=== PATIENT | male | born 1945 ===

== ENCOUNTER 2021-08-03 17:30 | Inpatient (IN) ==
[2021-08-03] MEDS ORDERED: Isovue-370 500 ML BOTTLE IVP ONE (21:24)
[2021-08-03 21:58] LABS: Basophils % 0.2 %; Hematocrit 33.5 % (37.5-50.1); Hemoglobin 10.8 g/dL (12.9-16.9); Immature Granulocytes % 1.1 % (0-4); Lymphocytes # 0.9 K/mcL (0.6-4.6); Lymphocytes % 6.9 %; Mean Corpuscular HGB Conc 32.2 g/dL (31.6-35.5); Mean Corpuscular Hemoglobin 31.4 pg (28.0-33.3); Mean Corpuscular Volume 97.4 fL (83.0-100.0); Mean Platelet Volume 9.9 fL (9.4-12.4); Monocytes # 0.9 K/mcL (0.0-1.3); Neutrophils # 10.5 K/mcL (1.6-8.9); Platelet Count 174 K/mcL (140-400); Red Blood Count 3.44 M/mcL (4.19-5.50); Red Cell Distribution Width 13.6 % (11.5-14.5); Segmented Neutrophils % 84.8 %; White Blood Count 12.3 K/mcL (4.3-11.1)
[2021-08-03 22:01] LABS: Bilirubin,Urine Negative (Negative); Blood,Urine Moderate (Negative); Clarity,Urine Clear (Clear); Color,Urine Light-Yellow (Yellow); Glucose,Urine (UA) 200 mg/dL (Normal); Ketones,Urine Negative (Negative); Leukocyte Esterase,Urine Negative (Negative); Mucus,Urine Few per lpf (None-Few); Nitrite,Urine Negative (Negative); PH,Urine 6.5 pH Units (5.0-8.0); Protein,Urine >=600 mg/dL (Neg-Trace); RBC,Urine TNTC per hpf (0-3); Specific Gravity,Urine 1.015 (1.010-1.025); Urobilinogen,Urine Normal (Normal)
[2021-08-03 22:14] LABS: Calcium 8.2 mg/dL (8.6-10.3)
[2021-08-03] MEDS ORDERED: *HR* HYDROmorphone (PF) 1 MG/ML SYRINGE IVP ONE (23:20)
[2021-08-03] MEDS ORDERED: Ondansetron 4 MG/2 ML VIAL IVP ONE (23:21)
[2021-08-04] MEDS ORDERED: 0.9 % Sodium Chloride 1,000 ML IVC ONE (05:27)
[2021-08-04] MEDS ORDERED: Acetaminophen 325 MG TABLET PO PRN (05:31)
[2021-08-04] MEDS ORDERED: *HR* Promethazine 25 MG/ML VIAL IM PRN (05:31)
[2021-08-04] MEDS ORDERED: Naloxone 0.4 MG/ML INJ IVP PRN (05:31)
[2021-08-04] MEDS: Ringers Solution, Lactated 1,000 ML IVC SCH ×2 (08:51→18:56)
[2021-08-04] MEDS: Doxycycline 100 MG CAPSULE PO SCH ×2 (08:51→20:15)
[2021-08-04] MEDS: *HR* Heparin 5,000 UNIT/ML VIAL SQ SCH ×2 (13:29→20:16)
[2021-08-04] MEDS: *HR* HYDROcodone/Acet 5/325 mg TABLET PO PRN ×2 (17:37→21:52)
[2021-08-04 22:46] LABS: Influenza A PCR Negative (Negative); Influenza B PCR Negative (Negative); Resp. Syncytial Virus PCR Negative (Negative)
[2021-08-04 22:49] LABS: SARS-CoV-2 by PCR (In House) Positive (Negative)
[2021-08-05 01:17] LABS: Basophils % 0.4 %; Eosinophils # 0.2 K/mcL (0.0-0.6); Eosinophils % 2.4 %; Hematocrit 31.5 % (37.5-50.1); Hemoglobin 10.1 g/dL (12.9-16.9); Immature Granulocytes % 0.6 % (0-4); Lymphocytes # 1.2 K/mcL (0.6-4.6); Lymphocytes % 14.9 %; Mean Corpuscular HGB Conc 32.1 g/dL (31.6-35.5); Mean Corpuscular Hemoglobin 30.9 pg (28.0-33.3); Mean Corpuscular Volume 96.3 fL (83.0-100.0); Mean Platelet Volume 9.8 fL (9.4-12.4); Monocytes # 0.6 K/mcL (0.0-1.3); Monocytes % 8.2 %; Neutrophils # 5.8 K/mcL (1.6-8.9); Platelet Count 155 K/mcL (140-400); Red Blood Count 3.27 M/mcL (4.19-5.50); Red Cell Distribution Width 13.6 % (11.5-14.5); Segmented Neutrophils % 73.5 %; White Blood Count 7.9 K/mcL (4.3-11.1)
[2021-08-05 01:36] LABS: Calcium 8.3 mg/dL (8.6-10.3); Potassium 4.1 mEq/L (3.5-5.1)
[2021-08-05] MEDS: *HR* HYDROcodone/Acet 5/325 mg TABLET PO PRN ×5 (03:11→21:46)
[2021-08-05] MEDS: *HR* Heparin 5,000 UNIT/ML VIAL SQ SCH ×3 (06:03→21:45)
[2021-08-05] MEDS: Doxycycline 100 MG CAPSULE PO SCH ×2 (08:49→21:46)
[2021-08-05] MEDS: Ondansetron 4 MG/2 ML VIAL IVP PRN (13:14)
[2021-08-05] MEDS: Gabapentin 400 MG CAPSULE PO SCH (21:45)
[2021-08-05] MEDS: Melatonin 3 MG TABLET PO PRN (21:45)
[2021-08-06] MEDS: *HR* HYDROcodone/Acet 5/325 mg TABLET PO PRN ×3 (05:40→20:33)
[2021-08-06] MEDS: *HR* Heparin 5,000 UNIT/ML VIAL SQ SCH ×3 (05:40→20:34)
[2021-08-06] MEDS: Finasteride 5 MG TABLET PO SCH (08:40)
[2021-08-06] MEDS: Gabapentin 400 MG CAPSULE PO SCH ×2 (08:40→20:33)
[2021-08-06] MEDS: Doxycycline 100 MG CAPSULE PO SCH ×2 (08:40→20:33)
[2021-08-06] MEDS: Furosemide 20 MG TABLET PO SCH (08:40)
[2021-08-06] MEDS: allopurinoL 100 MG TABLET PO SCH (10:19)
[2021-08-06] MEDS: Aspirin 325 MG TABLET PO SCH (13:32)
[2021-08-06] MEDS: Melatonin 3 MG TABLET PO PRN (20:33)
[2021-08-07 03:31] LABS: Basophils % 0.3 %; Eosinophils # 0.2 K/mcL (0.0-0.6); Eosinophils % 3.2 %; Hematocrit 28.6 % (37.5-50.1); Immature Granulocytes % 0.7 % (0-4); Lymphocytes # 1.1 K/mcL (0.6-4.6); Mean Corpuscular HGB Conc 31.5 g/dL (31.6-35.5); Mean Corpuscular Hemoglobin 30.9 pg (28.0-33.3); Mean Corpuscular Volume 98.3 fL (83.0-100.0); Mean Platelet Volume 9.9 fL (9.4-12.4); Monocytes # 0.5 K/mcL (0.0-1.3); Monocytes % 7.4 %; Neutrophils # 5.3 K/mcL (1.6-8.9); Platelet Count 152 K/mcL (140-400); Red Blood Count 2.91 M/mcL (4.19-5.50); Red Cell Distribution Width 14.2 % (11.5-14.5); Segmented Neutrophils % 73.4 %; White Blood Count 7.2 K/mcL (4.3-11.1)
[2021-08-07 03:44] LABS: Calcium 7.9 mg/dL (8.6-10.3); Potassium 4.3 mEq/L (3.5-5.1)
[2021-08-07] MEDS: *HR* Heparin 5,000 UNIT/ML VIAL SQ SCH ×3 (05:21→21:10)
[2021-08-07] MEDS: *HR* HYDROcodone/Acet 5/325 mg TABLET PO PRN ×4 (05:22→21:16)
[2021-08-07] MEDS: Doxycycline 100 MG CAPSULE PO SCH (08:51)
[2021-08-07] MEDS: Furosemide 20 MG TABLET PO SCH (08:51)
[2021-08-07] MEDS: Gabapentin 400 MG CAPSULE PO SCH ×2 (08:51→21:10)
[2021-08-07] MEDS: Aspirin 325 MG TABLET PO SCH (08:51)
[2021-08-07] MEDS: Finasteride 5 MG TABLET PO SCH (08:51)
[2021-08-07] MEDS: allopurinoL 100 MG TABLET PO SCH (09:59)
[2021-08-07] MEDS: Ondansetron 4 MG/2 ML VIAL IVP PRN (21:16)
[2021-08-07] MEDS: Melatonin 3 MG TABLET PO PRN (21:16)
[2021-08-08] MEDS: *HR* Heparin 5,000 UNIT/ML VIAL SQ SCH ×3 (05:47→21:49)
[2021-08-08] MEDS: Finasteride 5 MG TABLET PO SCH (10:11)
[2021-08-08] MEDS: Furosemide 20 MG TABLET PO SCH (10:11)
[2021-08-08] MEDS: Gabapentin 400 MG CAPSULE PO SCH ×2 (10:11→21:48)
[2021-08-08] MEDS: Aspirin 325 MG TABLET PO SCH (10:11)
[2021-08-08] MEDS: allopurinoL 100 MG TABLET PO SCH (10:18)
[2021-08-08] MEDS: *HR* HYDROcodone/Acet 5/325 mg TABLET PO PRN ×3 (12:29→21:49)
[2021-08-08] MEDS: Ondansetron 4 MG/2 ML VIAL IVP PRN (17:50)
[2021-08-09] MEDS: *HR* Heparin 5,000 UNIT/ML VIAL SQ SCH ×3 (04:59→19:59)
[2021-08-09] MEDS: Finasteride 5 MG TABLET PO SCH (08:41)
[2021-08-09] MEDS: Gabapentin 400 MG CAPSULE PO SCH ×2 (08:41→19:59)
[2021-08-09] MEDS: *HR* HYDROcodone/Acet 5/325 mg TABLET PO PRN ×2 (08:41→17:18)
[2021-08-09] MEDS: Furosemide 20 MG TABLET PO SCH (08:42)
[2021-08-09] MEDS: Aspirin 325 MG TABLET PO SCH (08:42)
[2021-08-09] MEDS: allopurinoL 100 MG TABLET PO SCH (08:43)
[2021-08-09] MEDS ORDERED: Hydrocortisone 1% OINT 28 GM TUBE TP PRN (12:39)
[2021-08-09] MEDS: Ondansetron 4 MG/2 ML VIAL IVP PRN (17:19)
[2021-08-10] MEDS: *HR* Heparin 5,000 UNIT/ML VIAL SQ SCH ×3 (05:39→21:54)
[2021-08-10] MEDS: *HR* HYDROcodone/Acet 5/325 mg TABLET PO PRN ×2 (05:41→21:57)
[2021-08-10] MEDS: allopurinoL 100 MG TABLET PO SCH (10:20)
[2021-08-10] MEDS: Gabapentin 400 MG CAPSULE PO SCH ×2 (10:20→21:53)
[2021-08-10] MEDS: Furosemide 20 MG TABLET PO SCH (10:20)
[2021-08-10] MEDS: Finasteride 5 MG TABLET PO SCH (10:20)
[2021-08-10] MEDS: Aspirin 325 MG TABLET PO SCH (10:20)
[2021-08-10] MEDS ORDERED: polyethylene glycoL 3350 17 GM POWD.PACK PO SCH (14:30)
[2021-08-10] MEDS ORDERED: polyethylene glycoL 3350 17 GM POWD.PACK PO PRN (14:35)
[2021-08-11] MEDS: *HR* Heparin 5,000 UNIT/ML VIAL SQ SCH ×3 (06:27→20:42)
[2021-08-11] MEDS: *HR* HYDROcodone/Acet 5/325 mg TABLET PO PRN ×2 (06:28→15:24)
[2021-08-11] MEDS: allopurinoL 100 MG TABLET PO SCH (08:45)
[2021-08-11] MEDS: Finasteride 5 MG TABLET PO SCH (08:45)
[2021-08-11] MEDS: Aspirin 325 MG TABLET PO SCH (08:45)
[2021-08-11] MEDS: Gabapentin 400 MG CAPSULE PO SCH ×2 (08:45→20:41)
[2021-08-11] MEDS: Furosemide 20 MG TABLET PO SCH (08:46)
[2021-08-11] MEDS ORDERED: Pantoprazole 40 MG VIAL IVP ONE (22:29)
[2021-08-12] MEDS: *HR* Heparin 5,000 UNIT/ML VIAL SQ SCH ×3 (06:26→21:11)
[2021-08-12] MEDS: Aspirin 325 MG TABLET PO SCH (08:19)
[2021-08-12] MEDS: Furosemide 20 MG TABLET PO SCH (08:19)
[2021-08-12] MEDS: Finasteride 5 MG TABLET PO SCH (08:20)
[2021-08-12] MEDS: Gabapentin 400 MG CAPSULE PO SCH ×2 (08:20→21:11)
[2021-08-12] MEDS: allopurinoL 100 MG TABLET PO SCH (08:20)
[2021-08-12] MEDS: Ondansetron 4 MG/2 ML VIAL IVP PRN (08:24)
[2021-08-13] MEDS: *HR* Heparin 5,000 UNIT/ML VIAL SQ SCH ×3 (05:48→19:33)
[2021-08-13] MEDS: Gabapentin 400 MG CAPSULE PO SCH ×2 (08:53→19:33)
[2021-08-13] MEDS: Furosemide 20 MG TABLET PO SCH (08:53)
[2021-08-13] MEDS: Finasteride 5 MG TABLET PO SCH (08:53)
[2021-08-13] MEDS: allopurinoL 100 MG TABLET PO SCH (08:53)
[2021-08-13] MEDS: Aspirin 325 MG TABLET PO SCH (08:53)
[2021-08-14] MEDS: *HR* Heparin 5,000 UNIT/ML VIAL SQ SCH (05:18)
[2021-08-14 06:58] VITALS: BP 143/82; PULSE 65; TEMP 97.5; O2SAT 97
[2021-08-14] MEDS: allopurinoL 100 MG TABLET PO SCH (09:26)
[2021-08-14] MEDS: Gabapentin 400 MG CAPSULE PO SCH (09:26)
[2021-08-14] MEDS: Furosemide 20 MG TABLET PO SCH (09:26)
[2021-08-14] MEDS: Finasteride 5 MG TABLET PO SCH (09:26)
[2021-08-14] MEDS: Aspirin 325 MG TABLET PO SCH (09:26)
== END 2021-08-14 10:51 | DRG 535 ==
LOC: EMEROOARM 17:30 → 2ANU 17:30 → SUATTDRO 08-04 05:33 → 2ANU 08-04 06:16 → SUATTDRO 08-05 16:54
PROVIDERS: ADMIT Internal Medicine; ATTEND Internal Medicine